=== PATIENT | female | born 2005 | race Caucasian/White ===

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

== ENCOUNTER 2023-07-12 04:17 | Inpatient (IN) | payer OTHER, MEDICAID ==
[2023-07-12] MEDS ORDERED: Lidocaine 1% 30 ML SDV INJECT ONE (11:09)
[2023-07-12] MEDS ORDERED: Ondansetron 4 MG/2 ML SDV IVPUSH PRN (12:00)
[2023-07-12] MEDS ORDERED: Methylergonovine 0.2 MG/1 ML Amp IM PRN (12:00)
[2023-07-12] MEDS ORDERED: Oxytocin/Normal Saline 30 UNIT/500 ML BAG IV SCH ×2 (12:00)
[2023-07-12] MEDS ORDERED: Misoprostol 50 MCG (1/2 of 100 MCG) Tab VAG SCH (12:00)
[2023-07-12] MEDS ORDERED: Acetaminophen 325 MG Tab PO PRN (12:00)
[2023-07-12] MEDS ORDERED: Lactated Ringers 1,000 ML IV ONE (12:00)
[2023-07-12] MEDS ORDERED: Misoprostol 25 MCG (1/4 of 100 MCG) Tab VAG PRN (12:00)
[2023-07-12] MEDS ORDERED: Lactated Ringers 1,000 ML IV SCH (12:00)
[2023-07-12] MEDS ORDERED: Carboprost Tromethamine 250 MCG/1 ML Amp IM PRN (12:00)
[2023-07-12] MEDS ORDERED: Misoprostol 400 MCG (4 X 100 MCG TAB) RECTAL PRN (12:00)
[2023-07-12] MEDS ORDERED: Tranexamic Acid 1,000 MG in Sodium Chloride 0.9% 100 ML IV PRN (12:00)
[2023-07-12] MEDS ORDERED: Sodium Chloride 0.9% 10 ML Syringe FLUSH PRN (12:00)
[2023-07-12 12:42] LABS: HEMATOCRIT 32.7 % (37.0-47.0); HEMOGLOBIN 10.7 g/dL (12.0-16.0); MEAN CORPUSCULAR HEMOGLOBIN 28.3 pg (27.0-34.0); MEAN CORPUSCULAR HGB CONC 32.7 g/dL (33.0-35.0); MEAN CORPUSCULAR VOLUME 86.5 fL (80-100); RED BLOOD CELL COUNT 3.78 10^6/uL (4.2-5.4); WHITE BLOOD CELL COUNT,WBC 11.3 10^3/uL (5.0-10.0)
[2023-07-12] MEDS ORDERED: fentaNYL 100 MCG/2 ML SDV IVPUSH PRN (21:12)
[2023-07-12] MEDS ORDERED: Naloxone 2 MG/2 ML Syringe IVPUSH PRN (21:12)
[2023-07-12] MEDS ORDERED: fentaNYL 100 MCG/2 ML SDV ONE (22:12)
[2023-07-12] MEDS ORDERED: Bupivacaine 0.25% 10 ML SDV ONE (22:12)
[2023-07-12] MEDS ORDERED: Phenylephrine HCl In 0.9% NaCl 1 MG/10 ML Syringe IVPUSH PRN (22:37)
[2023-07-12] MEDS ORDERED: ePHEDrine 50 MG/ML SDV IVPUSH PRN (22:37)
[2023-07-12] MEDS ORDERED: Ropivacaine 200 MG in Premix Bag 1 BAG EPIDUR SCH (22:45)
[2023-07-13] MEDS ORDERED: Benzocaine/Menthol 20%-0.5% Spray 78 GM Cannister TOP PRN (04:31)
[2023-07-13] MEDS ORDERED: Simethicone 80 MG Tab.Chew PO PRN (04:31)
[2023-07-13] MEDS ORDERED: Sodium Chloride 0.9% 10 ML Syringe FLUSH PRN (04:31)
[2023-07-13] MEDS ORDERED: Zolpidem 5 MG Tab PO PRN (04:31)
[2023-07-13] MEDS ORDERED: Oxytocin 10 Units/1 ML SDV IM PRN (04:31)
[2023-07-13] MEDS: Prenatal Multivitamin with Calcium/Folic Acid/Iron Tab PO SCH (08:01)
[2023-07-13] MEDS: Docusate Sodium 100 MG Cap PO PRN ×2 (08:01→20:22)
[2023-07-13] MEDS: Ferrous Sulfate 325 MG Tab PO SCH (08:03)
[2023-07-13] MEDS: Ibuprofen 800 MG Tab PO PRN ×2 (08:04→17:47)
[2023-07-13] MEDS: Measles, Mumps & Rubella Vaccine 0.5 ML SDV SUBCUT ONE (08:27)
[2023-07-13] MEDS ORDERED: fentaNYL 100 MCG/2 ML SDV EPIDUR ONE (22:10)
[2023-07-13] MEDS ORDERED: Bupivacaine 0.25% 10 ML SDV NERVRT ONE (22:10)
[2023-07-13] MEDS ORDERED: Ropivacaine 100 ML EPIDUR ONE (22:10)
[2023-07-14] MEDS: Ibuprofen 800 MG Tab PO PRN ×3 (05:52→23:08)
[2023-07-14 06:33] LABS: HEMATOCRIT 30.9 % (37.0-47.0); HEMOGLOBIN 9.9 g/dL (12.0-16.0); MEAN CORPUSCULAR HEMOGLOBIN 28.4 pg (27.0-34.0); MEAN CORPUSCULAR VOLUME 88.5 fL (80-100); RED BLOOD CELL COUNT 3.49 10^6/uL (4.2-5.4); WHITE BLOOD CELL COUNT,WBC 11.7 10^3/uL (5.0-10.0)
[2023-07-14] MEDS: Docusate Sodium 100 MG Cap PO PRN ×2 (08:00→23:09)
[2023-07-14] MEDS: Ferrous Sulfate 325 MG Tab PO SCH (08:00)
[2023-07-14] MEDS: Prenatal Multivitamin with Calcium/Folic Acid/Iron Tab PO SCH (08:00)
[2023-07-15] MEDS: Prenatal Multivitamin with Calcium/Folic Acid/Iron Tab PO SCH (08:04)
[2023-07-15] MEDS: Ferrous Sulfate 325 MG Tab PO SCH (08:04)
[2023-07-15] MEDS: Docusate Sodium 100 MG Cap PO PRN (08:04)
[2023-07-15] MEDS: Ibuprofen 800 MG Tab PO PRN (08:04)
[2023-07-15] MEDS: Measles, Mumps & Rubella Vaccine 0.5 ML SDV SUBCUT ONE (10:31)
== END 2023-07-15 11:43 | disposition home or self-care (01) | DRG 807 ==
LOC: DL.OB 04:17 → OBSVTOIN 07-13 04:17
PROVIDERS: ADMIT Family Medicine; ATTEND Family Medicine
PROC: 10E0XZZ Delivery of Products of Conception, External Approach (ICD-10-PCS; principal; 2023-07-13)
PROC: 10907ZC Drainage of Amniotic Fluid, Therapeutic from Products of Conception, Via Natural or Artificial Opening (ICD-10-PCS; 2023-07-13)
PROC: 3E0P7VZ Introduction of Hormone into Female Reproductive, Via Natural or Artificial Opening (ICD-10-PCS; 2023-07-13)
PROC: 3E0334Z Introduction of Serum, Toxoid and Vaccine into Peripheral Vein, Percutaneous Approach (ICD-10-PCS; 2023-07-13)
DX: O99.02 Anemia complicating childbirth (principal); Z37.0 Single live birth; O99.344 Other mental disorders complicating childbirth; F39 Unspecified mood [affective] disorder; R03.0 Elevated blood-pressure reading, without diagnosis of hypertension; O70.0 First degree perineal laceration during delivery; O71.82 Other specified trauma to perineum and vulva; O26.893 Other specified pregnancy related conditions, third trimester; Z3A.39 39 weeks gestation of pregnancy; Z91.018 Allergy to other foods; Z91.040 Latex allergy status; Z90.89 Acquired absence of other organs; Z67.41 Type O blood, Rh negative
CPT/HCPCS: 36415; 51702; 59025; 59409; 85027; 85461; 86850; 86870; 86900; 86901; 90471; 90707; A9270-GY; J2405; J2590; J2790; J3010; J7120

== ENCOUNTER 2024-01-18 07:35 | Emergency (ER) | payer MEDICAID, OTHER ==
[2024-01-18] MEDS: Albuterol/Ipratropium 3.0-0.5 MG/3 ML Neb Soln NEB ONE (08:09)
[2024-01-18] MEDS: Benzonatate 100 MG Cap PO ONE (08:09)
== END 2024-01-18 08:43 | disposition home or self-care (01) ==
LOC: DL.ED 07:35
DX: J20.8 Acute bronchitis due to other specified organisms (principal); J06.9 Acute upper respiratory infection, unspecified; R07.81 Pleurodynia; E66.9 Obesity, unspecified; Z68.35 Body mass index [BMI] 35.0-35.9, adult; Z91.040 Latex allergy status; Z91.018 Allergy to other foods
CPT/HCPCS: 87081; 87430; 87635; 87804; 99285; A9270; J7620-GY; U0002